=== PATIENT | female | born 1960 | race American Indian/Alaskan Native ===

== ENCOUNTER 2016-05-14 20:51 | Emergency (ER) | payer MEDICARE ==
--- NOTE | 2016-05-14 22:07 | XRay Report ---
FINAL REPORT PROCEDURE: XR ANKLE 3 RT TECHNIQUE: Right ankle radiographs, AP and lateral views. CPT 14478 HISTORY: Trip/fall, pain, send for report COMPARISON: No prior studies are available for comparison. FINDINGS: Fracture (s) and/or Dislocation(s): There is irregularity of the distal tibia suggesting an old healed fracture. No acute fracture is seen. Alignment: Normal . Joint space(s): Normal . Soft tissues: Normal . Bone mineralization: Normal . Foreign bodies: None . Calcaneal spurring: None . IMPRESSION: Probable old healed fracture of the tibia. The ankle joint is intact..
[2016-05-15] MEDS ORDERED: PERCOCET 5/325 PO ONE (00:05)
--- NOTE | 2016-05-15 00:08 | Emergency Department Report ---
ED Lower Extremity HPI - General Chief Complaint: Extremity Injury, Lower Stated Complaint: ANKLE INJURY Time Seen by Provider: 05/15/16 00:04 Source: patient, family Mode of arrival: Wheelchair Limitations: No Limitations - History of Present Illness Initial Comments: Patient here reported that she tripped and fell at about 1:00 in the morning. She says she is having right ankle and foot pain with swelling. Denies any ankle pain report. Pain at 5 out of 10. 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 Her family reports that she has a walking device but she never uses it. She says she was up in the kitchen and she tripped and fell. Denies any head injury or headache. Denies any numbness or tingling to extremity. She took [id number] medication which was Motrin but did not help. MD Complaint: ankle injury, foot injury, fall -: This morning Injury: Ankle: Right (right ankle pain), Foot: Right (right foot swelling and pain.) Type of Injury: eversion, hyperflexion Place: home Severity: moderate Severity scale (0 -10): 5 Improves With: immobilization, rest Worsens With: weight bearing, movement, palpation Context: fall Associated Symptoms: swelling. denies: snap/pop sensation, numbness, tingling, unable to bear weight, ambulatory Treatments Prior to Arrival: NSAIDS - Related Data Home Medications Medication Instructions Recorded Confirmed Last Taken Minoxidil [Loniten] 2.5 mg PO QDAY 11/26/12 06/12/14 06/11/14 10:00 cloNIDine [Catapres] 0.2 mg PO BID 11/26/12 06/12/14 06/12/14 06:00 metFORMIN [Glucophage] 1,000 mg PO QHS 11/26/12 06/12/14 06/11/14 21:00 metFORMIN [Glucophage] 500 mg PO QAM 11/26/12 06/12/14 06/11/14 10:00 Chlorthalidone 25 mg PO QDAY 06/12/14 06/12/14 06/11/14 10:00 Levemir Flextouch 40 units SUB-Q QDAY 06/12/14 06/12/14 Unknown Simvastatin 20 mg PO QHS 06/12/14 06/12/14 06/11/14 22:00 Previous Rx's Medication Instructions Recorded Last Taken Type Aspirin EC [Aspirin Enteric Coated 81 mg PO QDAY #30 tablet 06/14/14 Unknown Rx TAB] Carvedilol [Coreg] 6.25 mg PO BID #60 tablet 06/14/14 Unknown Rx Meclizine [Antivert] 25 mg PO Q8H PRN #20 tablet 06/14/14 Unknown Rx Sulfamethoxazole/Trimethoprim 1 each PO BID #20 tablet 10/27/14 Unknown Rx [Bactrim DS TAB] oxyCODONE /ACETAMINOPHEN [Percocet 1 tab PO Q6HR PRN #20 tablet 10/27/14 Unknown Rx 5/325] traMADol [Ultram] 50 mg PO Q6HR PRN #20 tablet 05/15/16 Unknown Rx Allergies Allergy/AdvReac Type Severity Reaction Status Date / Time carvedilol [From Coreg] Allergy Unknown Verified 11/26/12 17:57 furosemide [From Lasix] Allergy Unknown Verified 11/26/12 17:57 naproxen Allergy Swelling Verified 11/26/12 17:57 ED Review of Systems ROS: Stated complaint: ANKLE INJURY Other details as noted in HPI Comment: All other systems reviewed and negative Constitutional: denies: chills, fever Respiratory: no symptoms reported Cardiovascular: denies: chest pain, palpitations, edema, syncope Gastrointestinal: denies: nausea, vomiting Musculoskeletal: joint swelling, arthralgia. denies: back pain Skin: denies: rash Neurological: abnormal gait. denies: headache, weakness, numbness, paresthesias , confusion, vertigo ED Past Medical Hx - Past Medical History Previous Medical History?: Yes Hx Hypertension: Yes Hx CVA: Yes (11/2012) Hx Diabetes: Yes Hx Asthma: Yes (seasonal asthma) Hx COPD: No - Surgical History Past Surgical History?: Yes Hx Cholecystectomy: Yes Additional Surgical History: hernia repair. c-sections x 2 - Family History Family history: diabetes, hypertension - Social History Smoking Status: Never Smoker Substance Use Type: Alcohol - Medications Home Medications: Home Medications Medication Instructions Recorded Confirmed Last Taken Type Minoxidil [Loniten] 2.5 mg PO QDAY 11/26/12 06/12/14 06/11/14 10:00 History cloNIDine [Catapres] 0.2 mg PO BID 11/26/12 06/12/14 06/12/14 06:00 History metFORMIN [Glucophage] 1,000 mg PO QHS 11/26/12 06/12/14 06/11/14 21:00 History metFORMIN [Glucophage] 500 mg PO QAM 11/26/12 06/12/14 06/11/14 10:00 History Chlorthalidone 25 mg PO QDAY 06/12/14 06/12/14 06/11/14 10:00 History Levemir Flextouch 40 units SUB-Q QDAY 06/12/14 06/12/14 Unknown History Simvastatin 20 mg PO QHS 06/12/14 06/12/14 06/11/14 22:00 History Aspirin EC [Aspirin Enteric Coated 81 mg PO QDAY #30 tablet 06/14/14 Unknown Rx TAB] Carvedilol [Coreg] 6.25 mg PO BID #60 tablet 06/14/14 Unknown Rx Meclizine [Antivert] 25 mg PO Q8H PRN #20 tablet 06/14/14 Unknown Rx Sulfamethoxazole/Trimethoprim 1 each PO BID #20 tablet 10/27/14 Unknown Rx [Bactrim DS TAB] oxyCODONE /ACETAMINOPHEN [Percocet 1 tab PO Q6HR PRN #20 tablet 10/27/14 Unknown Rx 5/325] traMADol [Ultram] 50 mg PO Q6HR PRN #20 tablet 05/15/16 Unknown Rx ED Physical Exam - General Limitations: No Limitations General appearance: alert, in no apparent distress - Head Head exam: Present: atraumatic, normocephalic, normal inspection - Eye Eye exam: Present: normal appearance, PERRL, EOMI. Absent: periorbital swelling , periorbital tenderness Pupils: Present: normal accommodation - Neck Neck exam: Present: normal inspection, full ROM. Absent: tenderness, meningismus, lymphadenopathy - Respiratory Respiratory exam: Present: normal lung sounds bilaterally. Absent: respiratory distress, chest wall tenderness - Cardiovascular Cardiovascular Exam: Present: regular rate, normal rhythm, normal heart sounds - GI/Abdominal GI/Abdominal exam: Present: soft, normal bowel sounds. Absent: distended, tenderness, rigid - Expanded Lower Extremity Exam Right Hip exam: Present: normal inspection, full ROM, pelvic stability. Absent: tenderness, swelling, abrasion, laceration, ecchymosis, deformity, crepidus, dislocation, erythema, external rotation, internal rotation, shortening Upper Leg exam: Present: normal inspection, full ROM. Absent: tenderness, swelling, abrasion, laceration, ecchymosis, deformity, crepidus, dislocation, erythema Knee exam: Present: normal inspection, full ROM, full knee extension. Absent: tenderness, swelling, abrasion, laceration, ecchymosis, deformity, crepidus, dislocation, erythema, effusion, pain w/ pronation/supination, posterior draw sign, pain/laxity with valgus, pain/laxity with varus Lower Leg exam: Present: normal inspection, full ROM. Absent: tenderness, swelling, abrasion, laceration, ecchymosis, deformity, crepidus, dislocation, erythema, palpable cord, Aniyah's sign Ankle exam: Present: normal inspection, full ROM. Absent: tenderness, swelling , abrasion, laceration, ecchymosis, deformity, crepidus, dislocation, erythema Foot/Toe exam: Present: tenderness (right dorsal aspect of foot from distal to proximal), swelling (right dorsal aspect of foot distally and proximally.), erythema. Absent: normal inspection, full ROM, abrasion, laceration, ecchymosis , deformity, crepidus, dislocation, amputation, puncture wound, foreign body, calcaneal tenderness, tenderness at base of 5th metatarsal, nail avulsion, subungual hematoma Neuro vascular tendon exam: Present: no vascular compromise, motor deficit ( patient with weakness from previous stroke. She is unable to weight-bear to right foot due to pain and swelling.), significant pain with passive ROM of distal joint. Absent: pulse deficit, abnormal cap refill, sensory deficit, tendon deficit, extremity cold to touch, pallor, abnormal 2-point discrimination , decreased fine/light touch, foot drop, peroneal nerve deficit Gait: Positive: unable to bear weight - Back Exam Back exam: Present: normal inspection, full ROM. Absent: tenderness, CVA tenderness (R), CVA tenderness (L), muscle spasm, paraspinal tenderness, vertebral tenderness, rash noted - Neurological Exam Neurological exam: Present: alert, oriented X3, abnormal gait (abnormal gait to right lower extremity due to previous stroke she is weak on that side but also she has swelling and pain from falling.), reflexes normal. Absent: motor sensory deficit - Psychiatric Psychiatric exam: Present: normal affect, normal mood - Skin Skin exam: Present: warm, dry, intact, normal color. Absent: rash ED Course Vital Signs 05/14/16 05/15/16 21:00 02:50 Temperature 98.6 F 98.0 F Pulse Rate 92 H 85 Respiratory 20 20 Rate Blood Pressure 150/106 [Left] Blood Pressure 188/90 [Right] O2 Sat by Pulse 100 96 Oximetry - Reevaluation(s) Reevaluation #1: 05/15/16 02:28 Patient given Blaine 5/325 mg by mouth along with Zofran 8 mg ODT. Her x-ray of her right foot revealed that she has fractures and she was given medication prior to splint placement. Reevaluation #2: 05/15/16 02:33 Status post posterior splint placement patient with good color sensation temperature and movement to toes. Educated on splint care. - Orthopedic Splinting/Casting Injury #1 Side: right Lower Extremity Injury Location: foot Lower Extremity Immobilizer: posterior splint Other Orthopedic Equipment: other (patient has a walker at home that she says she'll use. She says she cannot use crutches because of her weakness to right side from previous strokes) ED Lower Extremity MDM - Radiology Data Radiology results: report reviewed X-ray of right ankle revealed no acute fracture or dislocation. X-ray of right foot reveals fractures of the distal second, third, fourth and fifth metatarsal bone. Remainder of bony structures are intact. - Medical Decision Making ED Course Patient here for right foot and ankle pain with swelling and x-ray revealed that patient has a fracture to her right foot the distal second, third, fourth and fifth metatarsal bone. See procedure note for splinting in detail. I explained to patient x-ray results and told her that she will need to follow-up with orthopedic doctor for further evaluation and treatment. Patient says she goes to [facility] and will follow up with orthopedic doctor [facility]. I told her I will refer her to one and if she gets another one done she can go to.orthopedic doctor. Discussed with her that she cannot remove splint and she needs to avoid weightbearing to right lower extremity. Patient with history of multiple strokes or right sided weakness was therefore she cannot use crutches palpation. Patient was given local 5/325 mg 2 tablets along with Zofran 8 mg ODT to prevent nausea. She says she felt better after pain medication and splint placement. Patient discharged home with prescription for Ultram. She is at high risk for fall therefore I did not want to give her any stronger narcotics. Critical care attestation.: If time is entered above; I have spent that time in minutes in the direct care of this critically ill patient, excluding procedure time. ED Disposition Clinical Impression: Arthralgia of multiple sites Foot fracture, right Qualifiers: Encounter type: initial encounter Fracture type: closed Qualified Code(s): S92.901A - Unspecified fracture of right foot, initial encounter for closed fracture Disposition: DISCHARGED TO HOME OR SELFCARE Is pt being admited?: No Does the pt Need Aspirin: No Condition: Stable Instructions: Foot Fracture in Adults (ED), Splint Care (ED), Arthralgia (ED) Additional Instructions: Please avoid bearing to right lower extremity. Follow-up with orthopedic doctor as instructed. take Ultram for pain. Prescriptions: traMADol [Ultram] 50 mg PO Q6HR PRN #20 tablet PRN Reason: Pain Referrals: PRIMARY MD MERISSA [Primary Care Provider] - 3-5 Days STEPHEN RIVERA MD [Staff Physician] - 05/19/16 Forms: Accompanied Note
--- NOTE | 2016-05-15 00:38 | XRay Report ---
FINAL REPORT PROCEDURE: XR FOOT 3 RT TECHNIQUE: Right foot radiographs, AP, lateral, and oblique views. CPT 21906 HISTORY: foot pain /swelling. RT after injury COMPARISON: No prior studies are available for comparison. FINDINGS: Fracture (s) and/or Dislocation(s): There are fractures of the distal 2nd, 3rd, 4th and 5th metatarsal bones.. Alignment: Normal . Joint space(s): Normal . Soft tissues: There is soft tissue swelling of the forefoot.. Bone mineralization: Normal . Foreign bodies: None . Calcaneal spurring: None . IMPRESSION: There are fractures of the distal 2nd, 3rd, 4th and 5th metatarsal bones.. Remainder of the bony structures are intact. There is soft tissue swelling of the forefoot.
[2016-05-15] MEDS ORDERED: NORCO 5/325 PO ONE (01:30)
[2016-05-15] MEDS ORDERED: ZOFRAN ODT PO ONE (01:30)
[2016-05-15 02:53] VITALS: BP 150/106
== END 2016-05-15 02:56 | disposition home or self-care (01) ==
LOC: ED 20:51
DX: S92.321A Displaced fracture of second metatarsal bone, right foot, initial encounter for closed fracture (principal); S92.331A Displaced fracture of third metatarsal bone, right foot, initial encounter for closed fracture; S92.341A Displaced fracture of fourth metatarsal bone, right foot, initial encounter for closed fracture; S92.354A Nondisplaced fracture of fifth metatarsal bone, right foot, initial encounter for closed fracture; I10 Essential (primary) hypertension; E11.9 Type 2 diabetes mellitus without complications; J45.909 Unspecified asthma, uncomplicated; W01.0XXA Fall on same level from slipping, tripping and stumbling without subsequent striking against object, initial encounter; Y93.9 Activity, unspecified; Y92.9 Unspecified place or not applicable; Y99.9 Unspecified external cause status
CPT/HCPCS: 99283; Q0162